=== PATIENT | male | born 1950 | race Caucasian/White ===

== ENCOUNTER 2023-08-25 13:12 | Emergency (ER) | payer MEDICARE, MEDICAID, SELFPAY ==
[2023-08-25 13:24] VITALS: BP 121/84; PULSE 81; RESP 12; TEMP 36.9; O2SAT 96; BMI 16.9
[2023-08-25] MEDS: 0.9 % Sodium Chloride 1,000 ML 999 ML IV (14:00)
[2023-08-25 14:31] LABS: MANUAL DIFF FLAG NO
[2023-08-25 14:32] LABS: Basophils Absolute Auto 0.1 X10*3/uL (0.0-0.2); Eosinophils Absolute Auto 0.1 X10*3/uL (0.0-0.4); Eosinophils Percent Auto 0.9 % (0-4); Hematocrit 44.4 % (42.0-52.0); Hemoglobin 15.3 g/dl (14.0-18.0); Imm Gran Abs Auto 0.02 X10*3/uL (0.00-0.03); Imm Gran Pct Auto 0.3 % (0.0-0.4); Lymphocytes Absolute Auto 1.5 X10*3/uL (1.2-4.9); Lymphocytes Percent Auto 21.7 % (20-40); Mean Corpuscular HGB Conc 34.5 g/dl (31.0-36.0); Mean Corpuscular Hemoglobin 31.7 pg (27.0-33.0); Mean Corpuscular Volume 91.9 fL (80.0-98.0); Monocytes Absolute Auto 0.6 X10*3/uL (0.1-1.2); Monocytes Percent Auto 8.5 % (2-11); Neutrophils Absolute Auto 4.8 x10*3/uL (2.0-8.3); Neutrophils Percent Auto 67.6 % (45-73); Platelet Count 287 X10*3/uL (160-400); Red Blood Count 4.83 X10*6/uL (4.60-5.80); Red Cell Distribution Width 13.8 % (11.0-16.0)
--- NOTE | 2023-08-25 14:34 | ED.WEAKNESS ---
HPI - Weakness General Chief complaint: Failure to Thrive Stated complaint: DEHYDRATION MALNUTRITION Time Seen by Provider: 08/25/23 13:29 Source: patient and EMS Mode of arrival: EMS Limitations: no limitations History of Present Illness HPI Narrative: 72-year-old male with a history of a CVA with left-sided deficits, alcohol use disorder, depression here with concern for decreased oral intake from his healthcare proxy. Patient reports he has suffered long-term with depression. He has been on multiple antidepressants which he does not feel are helpful. Has seen a variety of therapist but does not like talking to them. He does suffer from chronic depression. He reports that when he starts to eat he does not have much of an appetite and which he stops eating. He does hydrate. He denies any suicidal thoughts or homicidal ideations. No hallucinations. He has no additional physical complaints. He has not interested in speaking to anyone from crisis today as he has felt that his previous interventions have not been helpful. Related Data Previous Rx's Medication Instructions Recorded potassium chloride 20 mEq 20 meq PO DAILY #14 tabs 08/25/23 tablet,extended release Allergies Allergy/AdvReac Type Severity Reaction Status Date / Time No Known Allergies Allergy Verified 08/25/23 13:46 Review of Systems Review of Systems: Yes all other systems are reviewed and are negative Constitutional: Constitutional: Reports no additional constitutional complaints, Denies body ache(s), Denies chills, Denies fever(s), Denies headache(s), Reports poor appetite and Denies weakness Eyes: Eyes: Reports no additional eye complaints and Denies change in vision ENT: Reports system reviewed and no additional complaints, except as documented, Denies dizziness, Denies headache(s), Denies nasal congestion, Denies nasal discharge and Denies neck pain Cardiovascular: Cardiovascular: Reports no additional cardiovascular complaints, Denies chest pain, Denies leg edema and Denies dyspnea Respiratory: Respiratory: Reports no additional respiratory complaints, Denies cough and Denies dyspnea Gastrointestinal: Gastrointestinal: Reports no additional gastrointestinal complaints, Denies abdominal pain, Denies diarrhea, Denies nausea and Denies vomiting Genitourinary: Genitourinary: Denies urinary incontinence Musculoskeletal: Musculoskeletal: Reports no additional musculoskeletal complaints, Denies back pain, Denies arthralgias, Denies joint swelling, Denies neck pain, Denies numbness and Denies tingling Integumentary/Breasts: Skin/Breast: Reports system reviewed and no additional complaints, except as docu and Denies rash Neurologic: Reports system reviewed and no additional complaints, except as documented, Denies Abnormal speech present, Denies dizziness, Denies headache(s), Denies numbness, Denies tingling and Denies weakness Psychiatric: Psychiatric: Denies anxiety, Reports depression, Denies homicidal ideation and Denies suicidal ideation PMFSH Past Medical History Attestation statement: The following information was validated with the patient. Source: old records reviewed and nursing notes reviewed Onset Date is defined in the Problem List Problems that require an onset date and time if occurred within 24 hrs of arrival to the ED Aortic Dissection and Rupture; Neurologic impairment; Cardiopulmonary Arrest; Endotracheal Intubation; Insertion or Replacement of Mechanical Circulatory Assist Device Social History Social History Advance Directives: Yes Advance Directives Information Provided: No Advance Directives on File: No Physical Exam Vital Signs: Vital Signs: Last Vital Signs Temp 98.4 F 08/25/23 13:24 Pulse 81 08/25/23 13:24 Resp 12 08/25/23 13:24 BP 121/84 08/25/23 13:24 Pulse Ox 96 08/25/23 14:39 O2 Del Method Room Air 08/25/23 14:39 BMI result Body Mass Index 16.9 Const: Other: flat affect General: cooperative and alert Nutritional Appearance: thin Orientation/consciousness: patient oriented x3 Limitations: no limitations HEENT: Head: Yes normal to inspection Ears: hearing grossly normal bilaterally General nose exam: Normal external nose present Face and sinus: Yes normal facial exam Mouth: Normal oral and palatal mucosa present Throat: Yes posterior oropharynx normal Eyes: General: appearance normal, both eyes and all related structures Pupils: Equal, round and reactive pupils present Neck: Neck: Yes normal visual inspection Chest: Chest palpation & inspection: normal inspection of the chest Resp: Effort & Inspection: normal respiratory effort Auscultation: clear to auscultation bilaterally Cardio: Rate: regular rate Rhythm: regular rhythm Peripheral pulses: Peripheral pulses 2+ throughout GI: Inspection: Yes normal to inspection Palpation (GI): Soft to palpation and nontender Auscultation: normal bowel sounds Back/Spine/Pelvis: Thoracic/Lumbar Spine: thoracic and lumbar spine normal to inspection Skin: General skin exam: no rashes or lesions noted Neuro: General: patient oriented x3 and normal sensation to monofilament Cranial nerves: Yes Equal, round and reactive pupils present Cognition (Neuro): normal cognition Speech: No Abnormal speech present Motor exam (neuro): 5/5 motor strength present throughout Extrem: General: Yes normal to inspection, Yes no pedal edema and Yes no calf tenderness Course Course Course Narrative: 1500-K 2.7. Otherwise his labs are unremarkable. Both IV and PO potassium ordered. Recommended admission, patient declined and will leave AMA. Reevaluation(s) Reevaluation #1: 1630-patient will leave once his potassium is completed. He is eating dinner here. If changes his mind and wants to stay then his disposition can be changed. Medications Administered Generic Name Dose Route Start Last Admin Trade Name Freq PRN Reason Stop Dose Admin Potassium Chloride 10 meq in 100 mls @ 100 mls/hr 08/25/23 15:00 08/25/23 15:56 Potassium Chloride/H20 IV 08/25/23 16:59 100 mls/hr Q1H TEJINDER Administration Discontinued Medications Generic Name Dose Route Start Last Admin Trade Name Freq PRN Reason Stop Dose Admin Sodium Chloride 1,000 mls @ 999 mls/hr 08/25/23 13:46 08/25/23 15:06 Ns IV 08/25/23 14:46 Infused .Q1H1M STA Infusion Potassium Chloride 60 meq 08/25/23 14:50 08/25/23 15:31 Potassium Chloride Er 20 Meq Tab.Er.Prt PO 08/25/23 14:51 60 meq ONCE ONE Administration Medical Decision Making Medical Decision Making [facility] Narrative: 72-year-old male with a history of a CVA with left-sided deficits, alcohol use disorder, depression here with concern for decreased oral intake from his healthcare proxy. Patient reports he has suffered long-term with depression. He has been on multiple antidepressants which he does not feel are helpful. Has seen a variety of therapist but does not like talking to them. He does suffer from chronic depression. He reports that when he starts to eat he does not have much of an appetite and which he stops eating. He does hydrate. He denies any suicidal thoughts or homicidal ideations. No hallucinations. He has no additional physical complaints. He has not interested in speaking to anyone from crisis today as he has felt that his previous interventions have not been helpful. ON exam patient is thin appearing, no focal finding, VSS Initially he wanted to leave. Did not want to see crisis. He is alert and oriented x 3 and has no complaints of SI/HI. Eventually he did agree to have labs and medical w/u Differential Diagnosis Differential Diagnoses: The differential diagnosis associated with the presentation includes dehydration, malnutrition, electrolyte abnormality, depression Admission/Observation Consideration of admission/observation: Escalation of care including admission/observation considered Hypokalemia which I would recommend admission for placement but patient who was alert and oriented and makes his own medical decisions declined admission. Lab Data MDM Lab Attestation statement: I reviewed the patient's lab results. 08/25/23 14:27 08/25/23 14:27 Labs: Lab Results 08/25/23 Range/Units 14:27 WBC 7.0 (4.8-10.8) X10*3/uL RBC 4.83 D (4.60-5.80) X10*6/uL Hgb 15.3 D (14.0-18.0) g/dl Hct 44.4 D (42.0-52.0) % MCV 91.9 (80.0-98.0) fL MCH 31.7 (27.0-33.0) pg MCHC 34.5 (31.0-36.0) g/dl RDW 13.8 (11.0-16.0) % Plt Count 287 D (160-400) X10*3/uL MPV 10.0 (9.4-12.4) fL Immature Gran % (Auto) 0.3 (0.0-0.4) % Neut % (Auto) 67.6 (45-73) % Lymph % (Auto) 21.7 (20-40) % [place] % (Auto) 8.5 (2-11) % Eos % (Auto) 0.9 (0-4) % Baso % (Auto) 1.0 (0-2) % Lymph # (Auto) 1.5 (1.2-4.9) X10*3/uL [place] # (Auto) 0.6 (0.1-1.2) X10*3/uL Eos # (Auto) 0.1 (0.0-0.4) X10*3/uL Baso # (Auto) 0.1 (0.0-0.2) X10*3/uL Abs Immat Gran (auto) 0.02 (0.00-0.03) X10*3/uL Absolute Neuts (auto) 4.8 (2.0-8.3) x10*3/uL Absolute Nucleated RBC 0.000 (0.0-0.012) X10*3/uL Nucleated RBC % (auto) 0.0 (0.0-0.2) /100WBC Sodium 143 (135-145) mmol/L Potassium 2.7 L* (3.3-5.1) mmol/L Chloride 104 (96-108) mmol/L Carbon Dioxide 29 (22-29) mmol/L Anion Gap 13 (12-20) BUN 13 (9-16) mg/dL Creatinine 0.59 (0.5-1.4) mg/dL Estim Creat Clear Calc 80.5 Estimated GFR > 60 Random Glucose 107 (60-115) mg/dL Lactic Acid 1.2 (0.5-2.0) mmol/L Calcium 8.6 D (8.4-10.2) mg/dL Magnesium 1.7 (1.6-2.6) mg/dL Total Bilirubin 0.3 (0.0-1.0) mg/dL Direct Bilirubin 0.1 (0.0-0.5) mg/dL AST 13 (5-37) U/L ALT 12 (0-40) U/L Alkaline Phosphatase 62 (39-117) U/L Total Creatine Kinase 19 L (38-174) U/L Total Protein 6.1 L (6.5-8.0) g/dL Albumin 3.5 (3.5-5.0) g/dL Independent Historian Clinical information obtained from an independent historian. History obtained from or confirmed by: EMS Discharge Plan Discharge Clinical Impression: Acute hypokalemia Patient Disposition: Left Against Medical Advice Instructions: Potassium Content of Foods List (ED), Hypokalemia (ED) Additional Instructions: We recommended that you stay in the hospital be treated with potassium as her potassium levels are quite low. Your muscles need potassium to contract. If you do not have enough potassium your heart may not function with it should Prescriptions: New potassium chloride 20 mEq tablet extended release 20 meq PO DAILY Qty: 14 0RF Referrals: Regis Gong DO [Primary Care Provider] - 1 week Stand Alone Forms: Against Medical Advice
[2023-08-25 14:39] VITALS: O2SAT 96
[2023-08-25 14:42] LABS: Lactic Acid 1.2 mmol/L (0.5-2.0)
[2023-08-25 14:50] LABS: Alanine Aminotransferase 12 U/L (0-40); Albumin Level 3.5 g/dL (3.5-5.0); Alkaline Phosphatase 62 U/L (39-117); Anion Gap 13 (12-20); Aspartate Amino Transferase 13 U/L (5-37); Bilirubin Direct 0.1 mg/dL (0.0-0.5); Bilirubin Total 0.3 mg/dL (0.0-1.0); Blood Urea Nitrogen 13 mg/dL (9-16); Calcium 8.6 mg/dL (8.4-10.2); Carbon Dioxide 29 mmol/L (22-29); Chloride 104 mmol/L (96-108); Creatinine Clr Calc Pharmacy 80.5; Estimated Glomerular Filt Rate > 60; Glucose Random 107 mg/dL (60-115); Magnesium 1.7 mg/dL (1.6-2.6); Potassium 2.7 mmol/L (3.3-5.1); Sodium 143 mmol/L (135-145); Total Protein 6.1 g/dL (6.5-8.0)
--- NOTE | 2023-08-25 14:50 | ECG_ITS ---
Test Reason : FAILURE TO THRIVE Blood Pressure : / mmHG Vent. Rate : 056 BPM Atrial Rate : 000 BPM P-R Int : 000 ms QRS Dur : 074 ms QT Int : 450 ms P-R-T Axes : 000 077 078 degrees QTc Int : 434 ms Junctional rhythm Septal infarct , age undetermined Abnormal ECG No previous ECGs available Referred By: Elaine Ordaz Electronically Signed By:Rashaad Conley
[2023-08-25] MEDS: Potassium Chloride ER 20 MEQ TAB.ER.PRT 60 MEQ PO (15:31)
[2023-08-25] MEDS: Potassium Chloride/H20 10 MEQ/100 ML PIGGYBACK 100 MEQ IV ×2 (15:56→17:21)
--- NOTE | 2023-08-25 16:23 | PC.NURSE ---
coming from home for failure to thrive, history of cva in the past with left sided deficits. ambulates at home with walker. has been feeling increasingly depressed, declines wanting to speak with care team at this time. labs obtained and sent, patient medicated per the MAR. provided with sandwich and drink. resting quietly in room with call ty within reach. offering no further complaints.
[2023-08-25 17:21] VITALS: BP 97/63; PULSE 77; RESP 14; TEMP 36.8; O2SAT 96
--- NOTE | 2023-08-25 17:23 | PC.NURSE ---
second bag of potassium infusing. patient resting comfortably in bed, call ty remains in place.
== END 2023-08-25 19:13 | disposition left against medical advice (07) ==
PROVIDERS: Nurse Practitioner Family; Emergency Provider Emergency Medicine; PCP Pediatrics
DX: E87.6 Hypokalemia (principal); R62.7 Adult failure to thrive; R00.1 Bradycardia, unspecified; E86.0 Dehydration; F33.1 Major depressive disorder, recurrent, moderate; Z86.73 Personal history of transient ischemic attack (TIA), and cerebral infarction without residual deficits; Z79.899 Other long term (current) drug therapy
CPT/HCPCS: 36415; 80048; 80076; 82550; 83605; 83735; 85025; 93005; 96361; 96365; 96366; 99285; J3480

== ENCOUNTER → 2023-08-25 14:50 | Outpatient (BNV) | payer MEDICARE, MEDICAID, SELFPAY | PROVIDERS: Emergency Provider Emergency Medicine; PCP Pediatrics; Visit Provider Internal Medicine Cardiovascular Disease | DX: R94.31 Abnormal electrocardiogram [ECG] [EKG] (principal) | CPT/HCPCS: 93010 ==